=== PATIENT | male | born 1970 | race African-American/Black ===

== ENCOUNTER → 2017-03-14 | Outpatient (CLI) | payer OTHER | LOC: M LRY 11:53 | DX: M54.41 Lumbago with sciatica, right side (principal); M25.78 Osteophyte, vertebrae | CPT/HCPCS: 72110 ==

== ENCOUNTER → 2017-04-11 | Outpatient (CLI) | payer OTHER ==
[2017-04-11 18:30] LABS: ANION GAP 6 MEQ/L (8-16); BLOOD UREA NITROGEN 12 MG/DL (7-18); CALCIUM LEVEL 9.8 MG/DL (8.5-10.1); CARBON DIOXIDE LEVEL 30 MEQ/L (21-32); CHLORIDE LEVEL 105 MEQ/L (98-107); CREATININE FOR GFR 1.08 MG/DL (0.70-1.30); GLOMERULAR FILTRATION RATE > 60.0 (>60); GLUCOSE, FASTING 73 MG/DL (70-100); POTASSIUM SERUM 4.5 MEQ/L (3.5-5.1); SODIUM LEVEL 141 MEQ/L (136-145)
== END ==
LOC: M LRY 12:46
DX: M54.41 Lumbago with sciatica, right side (principal)
CPT/HCPCS: 80048

== ENCOUNTER → 2021-11-20 | Outpatient (CLI) | payer OTHER ==
[~2021-11-20] MED LIST: ANEX7.5T PO; GABA300C2 PO; IBUP200T2 PO; OXYC1TAB23 PO; skelaxin OR
== END ==
LOC: M RAD 10:52
PROVIDERS: ATTEND Registered Nurse
DX: M25.561 Pain in right knee (principal)